=== PATIENT | female | born 1930 | race Caucasian/White ===

== ENCOUNTER 2021-09-27 15:14 | Inpatient (IN) | payer OTHER ==
[~2021-09-27] VITALS: Ht 154.9 cm; Wt 45.5 kg
[~2021-09-27 15:14] MED LIST: ASPI81CH PO; ATOR10 PO; Prednisone20 MG PO
[2021-09-27 15:52] LABS: BASOPHILS ABSOLUTE AUTO 0.05 K/mm3 (0.00-0.23); BASOPHILS PERCENT AUTO 0 % (0-2); EOSINOPHILS PERCENT AUTO 0 % (0-6); Hematocrit 50.9 % (33.0-51.0); Hemoglobin 17.9 g/dL (11.5-16.0); IMMATURE GRAN PERCENT AUTO 1 % (0-1); LYMPHOCYTES ABSOLUTE AUTO 0.58 K/mm3 (0.84-5.20); LYMPHOCYTES PERCENT AUTO 3 % (21-46); MONOCYTES ABSOLUTE AUTO 0.38 K/mm3 (0.16-1.47); MONOCYTES PERCENT AUTO 2 % (4-13); Mean Corpuscular HGB 31.2 pg (26.0-34.0); Mean Corpuscular HGB Conc 35.2 g/dL (31.5-36.5); Mean Corpuscular Volume 89 fL (80-100); Mean Platelet Volume 10.4 fL (9.1-12.4); NEUTROPHILS ABSOLUTE AUTO 19.45 K/mm3 (1.96-9.15); NEUTROPHILS PERCENT AUTO 95 % (41-73); Platelet Count 352 K/mm3 (150-400); RDW Coefficient Variation 12.8 % (11.7-14.2); RDW Standard Deviation 41.8 fL (35.1-46.3); Red Blood Cell Count 5.74 M/mm3 (3.80-5.20); White Blood Cell Count 20.56 K/mm3 (4.00-11.30)
[2021-09-27 16:12] LABS: Albumin, Blood 4.3 g/dL (3.4-5.0); Bilirubin, Total 1.1 mg/dL (0.1-1.0); Calcium, Blood 10.1 mg/dL (8.5-10.1); Globulin, Blood 4.4 g/dL (2.2-4.0); Potassium, Blood 3.9 mmol/L (3.5-5.5); Total Protein, Blood 8.7 g/dL (6.4-8.2)
[2021-09-27 17:44] LABS: Source, Urine Clean Catch
[2021-09-27 18:01] LABS: Appearance, Urine Hazy (Clear); Bilirubin, Urine Neg (Neg); Blood, Urine 5+ (Neg); Color, Urine Yellow (P-Yellow); Glucose Qualitative, Urine Neg (Neg); Ketones, Urine 3+ (Neg); Leukocyte Esterase, Urine 2+ (Neg); Nitrite, Urine Pos (Neg); Protein, Urine 2+ (Neg); Specific Gravity, Urine 1.025 (1.003-1.022); Urobilinogen, Urine NORM (Normal)
[2021-09-27 18:25] LABS: Bacteria Many /hpf; Squamous Epithelial Cells Few /hpf (Few)
--- NOTE | 2021-09-27 21:39 | NUR ---
ADMIT NOTE 89 YR OLD FEMALE ADMITTED TO FLOOR FROM THE ED WITH DX OF SEPSIS DUE TO UTI. ED RN REPORTED PT'S NEIGHBOR WAS CONCERNED SHE WAS DISPLAYING WEAKNESS AND INCREASED CONFUSION SO SHE CALLED THE AMBULANCE TO BE TAKEN TP MINE. PT IS POORHISTORIAN, UNKNOWN OF MEDS. TEMP LOW (96.5 F) WARM BLANKETS APPLIED. IVF INFUSING. VOICED DRY MOUTH, BUT VOICED HAD TROUBLE SWALLOWING). SIPS OF WATER TOLERATAD. ORIENTD TO CALL LIGHT. BED ALARM ON. CALL LIGHT IN REACH
--- NOTE | 2021-09-28 00:33 | NUR ---
SKIN WARM TO TOUCH. IVF INFUSING. AFFECT MORE CHEERFUL. CALL LIGHT IN REACH. REPOSITIONED
--- NOTE | 2021-09-28 03:43 | NUR ---
CYLINDER DEVALVER SUMMARY WAS ADMITTED EARLIER IN THE SHIFT WITH CONFUSION AND SKIN COOL TO TOUCH. WARM BLANKETS APPLIED, AND HEAT TURNED UP IN ROOM. SKIN/PT WARM TO TOUCH NOW. IVF OF LR INFUSING AT 100 ML/HR. TOLERATED PO WATER IN SIPS. VERBALIZATION MORE COHERENT THAN NOTED EARLIER. RESTING QUIETLY WITH NO NOTED ACUTE DISTRESS. FEW INTERRUPTIONS IN REST NOTED, CALL LIGHT IN REACH. WILL CONT TO MONITOR. BED ALARM ON
[2021-09-28 05:43] LABS: BASOPHILS ABSOLUTE AUTO 0.06 K/mm3 (0.00-0.23); BASOPHILS PERCENT AUTO 0 % (0-2); EOSINOPHILS ABSOLUTE AUTO 0.05 K/mm3 (0.00-0.68); EOSINOPHILS PERCENT AUTO 0 % (0-6); Hematocrit 42.7 % (33.0-51.0); Hemoglobin 14.9 g/dL (11.5-16.0); IMMATURE GRAN ABSOLUTE AUTO 0.09 K/mm3 (0.00-0.10); IMMATURE GRAN PERCENT AUTO 1 % (0-1); LYMPHOCYTES ABSOLUTE AUTO 1.31 K/mm3 (0.84-5.20); LYMPHOCYTES PERCENT AUTO 7 % (21-46); MONOCYTES ABSOLUTE AUTO 1.33 K/mm3 (0.16-1.47); MONOCYTES PERCENT AUTO 8 % (4-13); Mean Corpuscular HGB 31.4 pg (26.0-34.0); Mean Corpuscular HGB Conc 34.9 g/dL (31.5-36.5); Mean Corpuscular Volume 90 fL (80-100); Mean Platelet Volume 10.3 fL (9.1-12.4); NEUTROPHILS ABSOLUTE AUTO 14.99 K/mm3 (1.96-9.15); NEUTROPHILS PERCENT AUTO 84 % (41-73); Platelet Count 258 K/mm3 (150-400); RDW Coefficient Variation 12.7 % (11.7-14.2); Red Blood Cell Count 4.74 M/mm3 (3.80-5.20); White Blood Cell Count 17.83 K/mm3 (4.00-11.30)
[2021-09-28 06:11] LABS: Bun/Creatinine Ratio 68.9 (12.0-20.0); Calcium, Blood 8.9 mg/dL (8.5-10.1); Creatinine, Blood 0.76 mg/dL (0.40-1.00); Potassium, Blood 3.7 mmol/L (3.5-5.5)
--- NOTE | 2021-09-28 17:34 | NUR ---
Brief supportive visit. Pt resting in bed and is pleasantly confused. Pt A&OX1. Pt struggles with remembering family member names and can recall name of one of her children. Pt tends to engage in non sensical conversation and is distracted easily. Ended visit to allow Pt to rest.
--- NOTE | 2021-09-28 18:56 | NUR ---
SHIFT SUMMARY PT IS FEELING BETTER TODAY, FEWER INSTANCES OF DIARRHEA SINCE USING HER BANANTROL. IC INFILTRATED AND PT SWITCHED TO PO MEDS. WORKED WITH PT AND OT TODAY. PT WILL BE EVALUATED TO DECIDE WHTHER SHE WILL RETURN TO HER ASISTED LIVING. BED IN LOWEST POSITION AND CALL LIGHT IN REACH
[2021-09-29 04:40] LABS: BASOPHILS ABSOLUTE AUTO 0.05 K/mm3 (0.00-0.23); BASOPHILS PERCENT AUTO 0 % (0-2); EOSINOPHILS ABSOLUTE AUTO 0.09 K/mm3 (0.00-0.68); EOSINOPHILS PERCENT AUTO 1 % (0-6); Hematocrit 42.9 % (33.0-51.0); Hemoglobin 14.5 g/dL (11.5-16.0); IMMATURE GRAN ABSOLUTE AUTO 0.04 K/mm3 (0.00-0.10); IMMATURE GRAN PERCENT AUTO 0 % (0-1); LYMPHOCYTES PERCENT AUTO 16 % (21-46); MONOCYTES ABSOLUTE AUTO 0.86 K/mm3 (0.16-1.47); MONOCYTES PERCENT AUTO 8 % (4-13); Mean Corpuscular HGB 30.7 pg (26.0-34.0); Mean Corpuscular HGB Conc 33.8 g/dL (31.5-36.5); Mean Corpuscular Volume 91 fL (80-100); Mean Platelet Volume 10.3 fL (9.1-12.4); NEUTROPHILS ABSOLUTE AUTO 8.38 K/mm3 (1.96-9.15); NEUTROPHILS PERCENT AUTO 75 % (41-73); Platelet Count 241 K/mm3 (150-400); RDW Standard Deviation 43.2 fL (35.1-46.3); Red Blood Cell Count 4.72 M/mm3 (3.80-5.20); White Blood Cell Count 11.22 K/mm3 (4.00-11.30)
[2021-09-29 04:56] LABS: Calcium, Blood 8.8 mg/dL (8.5-10.1); Creatinine, Blood 0.63 mg/dL (0.40-1.00); Potassium, Blood 3.2 mmol/L (3.5-5.5)
--- NOTE | 2021-09-29 06:21 | NUR ---
PATENTS EXAMINER SUMMARY HAS BEEN AWAKE AT INTERVALS THIS SHIFT. CONFUSION INCREASED, EVEN GETTING OUT OF BED PULLING AT IV LINE AND ALMOST FALLING. NOT REDIRECTABLE, PLACED IN NISSA VEST AND 4 RAILS UP FOR SAFETY. CONTINUES TO VOICE FRUSTRATIONS OF NOT KNOWING WHERE SHE IS AND EVEN THOUGH STAFF CONTINUES TO REDIRECT HER, SHE VOICES FEARS OF NOT KNOWING WHERE SHE IS AND OF WHY SHE IS IN NISSA VEST. FINALLY WENT TO SLEEP. CALL LIGHT IN REACH. REASURRANCE AND SUPPORT VOICED. WILL CONTINUE TO MONITOR.
[2021-09-29 07:58] LABS: Magnesium, Blood 2.4 mg/dL (1.6-2.4); Phosphorus, Blood 2.3 mg/dL (2.5-4.9)
--- NOTE | 2021-09-29 18:00 | NUR ---
SHIFT SUMMARY PATIENT A&0X1 AND FORGETFUL. PATIENT MOVED FROM MAIN FLOOR TO BACK MERRILL FOR CLOSER OBSERVATION. REPORTED THAT PATIENT IS INDEPENDENT IN ROOM. PATIENT HAS BEEN UP IN CHAIR SINCE ARRIVAL. RECEIVING IV FLUIDS AND REPORTED SHE RECEIVED IV K+. NO SIGNIFICANT EVENTS. WILL CONTINUE TO MONITOR.
--- NOTE | 2021-09-29 18:47 | NUR ---
TRANFER NOTE. PT WAS PLACED INTO A NISSA VEST LAST NIGHT AND WAS VERY UPSET BY IT. TODAY SHE HAS BEEN VERY AGITATED ANC SCARED THAT SHE WOULD BE PUT BACK INTO RESTRAINTS. SHE WAS IN THE CHAIR ON A CHAIR ALARM AND CONSTANTLY KEPT GETTING UP AND DOWN AND WAS SO UPSET BY THE ALARM THAT SHE WAS PANICKING AND PULLED OUT OUT HER IV. THE IV WAS REPLACED AND A SINGLE DOSE OF ATIVAN GIVEN. SHE SPENT THE REST OF THE DAY GETTING UP AND DOWN AND YELLING OUT ABOUT BEING LONELY AND SCARED AND NOT KNOWING WHERE SHE WAS. PT RECIEVED CONSTANT REASSURANCE AND REDIRECTION, BUT HAS A VERY POOR MEMORY. SHE WAS TRANSFERRED TO THE BACK MERRILL TO BE PLACED ON CAMERA TO GIVE HER MORE FREEDOM. REPORT GIVEN TO NAVARRO GARAY
--- NOTE | 2021-09-30 00:54 | NUR ---
PATIENT HAVING AUDITORY HALLUCINATIONS LAST THIRTY MINUTES.
--- NOTE | 2021-09-30 04:28 | NUR ---
SHIFT SUMMARY PATIENT ANXIOUS AND FORGETFUL T/O THE SHIFT. AXO X2 WITH CONFUSION AND SUNDOWNING. REPEATING QUESTIONS ALREADY ANSWERED REPORTING SHE DOESN'T UNDERSTAND WHY SHE IS HERE. UNABLE TO REORIENT AND REDIRECT AT THIS TIME. PATIENT HAD MULTIPLE OOB ATTEMPTS. TRAZODONE 50 MG GIVEN FOR INSOMNIA WITH MINIMAL EFFECT. PIV REMAINS INTACT. 1/2 NS FINISHED INFUSING AT 125mL/HR X ONE BAG. AUDITORY HALLUCINATIONS. MELATONIN 3 MG GIVEN FOR INSOMNIA. PATIENT ABLE TO SLEEP PART OF SECOND HALF OF SHIFT. VSS/AFEBRILE. DENIES PAIN, SOB, AND N/V. CALL LIGHT IN REACH. BED IN LOWEST POSITION AND ALARM ACTIVATED. WILL CONTINUE TO MONITOR UNTIL DAY SHIFT NURSE ASSUMES CARE.
[2021-09-30 06:27] LABS: Calcium, Blood 8.3 mg/dL (8.5-10.1); Creatinine, Blood 0.55 mg/dL (0.40-1.00); Potassium, Blood 3.8 mmol/L (3.5-5.5)
--- NOTE | 2021-09-30 11:30 | NUR ---
ORDER FOR 1/2 NACL AT 250ML/HR X1 BAG PLACED BY DR. HETAL YAO NOT DR. WILLEM HOLM.
--- NOTE | 2021-09-30 12:49 | NUR ---
ATTEMPTED TO CALL DAUGHTER AND MULTIPLE TIMES IN REGARDS TO DISCHARGE. NO ANSWER.
[2021-09-30] MEDS ORDERED: MELA3 PO (13:01)
[2021-09-30] MEDS ORDERED: VISBIOME 112.51 EACH PO (13:02)
--- NOTE | 2021-09-30 17:39 | NUR ---
SHIFT SUMMARY PATIENT A&O TO SELF. VERY FORGETFUL AND CONFUSED. CONTINUALLY ASKING SAME QUESTIONS. SBA TO BATHROOM. RECEIVED IV FLUIDS AND ANTIBIOTICS. PLAN TO DISCHARGE HOME ON SATURDAY WHEN HER KIDS WILL BE ABLE TO HELP WITH HER CARE AND BEGIN THE PROCESS OF GETTING HER AND HER INTO ASSISTED LIVING. WILL CONTINUE TO MONITOR.
--- NOTE | 2021-10-01 03:32 | NUR ---
URINE SAMPLE FOR OSMOLALITY COLLECTED AND SENT TO LAB
--- NOTE | 2021-10-01 04:17 | NUR ---
SHIFT SUMMARY PATIENT TEMP 100.9 AND TYLENOL 650 MG GIVEN PER EMAR. REASSESS 98.5. AXO X 2 FORGETFUL AND CONFUSED. REPEATS SHE DOESN'T KNOW WHAT IS GOING ON AND WHY SHE IS HERE. NO AUDITORY HALLUCINATIONS OBSERVED. WATCHED TV SITTING IN CHAIR FIRST PART OF SHIFT. DENIES PAIN, SOB, AND N/V. PIV REMAINS INTACT. SLEPT ON/OFF T/O SHIFT. CALL LIGHT IN REACH. BED IN LOWEST POSITION AND ALARM ACTIVATED. WILL CONTINUE TO MONITOR UNTIL DAY SHIFT NURSE ASSUMES CARE.
[2021-10-01 05:20] LABS: Bun/Creatinine Ratio 19.2 (12.0-20.0); Calcium, Blood 7.9 mg/dL (8.5-10.1); Creatinine, Blood 0.52 mg/dL (0.40-1.00); Potassium, Blood 3.5 mmol/L (3.5-5.5)
[2021-10-01 08:39] LABS: BASOPHILS ABSOLUTE AUTO 0.06 K/mm3 (0.00-0.23); BASOPHILS PERCENT AUTO 1 % (0-2); EOSINOPHILS ABSOLUTE AUTO 0.06 K/mm3 (0.00-0.68); EOSINOPHILS PERCENT AUTO 1 % (0-6); Hematocrit 41.8 % (33.0-51.0); Hemoglobin 14.3 g/dL (11.5-16.0); IMMATURE GRAN ABSOLUTE AUTO 0.06 K/mm3 (0.00-0.10); IMMATURE GRAN PERCENT AUTO 1 % (0-1); LYMPHOCYTES PERCENT AUTO 11 % (21-46); MONOCYTES PERCENT AUTO 6 % (4-13); Mean Corpuscular HGB 31.2 pg (26.0-34.0); Mean Corpuscular HGB Conc 34.2 g/dL (31.5-36.5); Mean Corpuscular Volume 91 fL (80-100); Mean Platelet Volume 10.7 fL (9.1-12.4); NEUTROPHILS ABSOLUTE AUTO 10.14 K/mm3 (1.96-9.15); NEUTROPHILS PERCENT AUTO 82 % (41-73); Platelet Count 175 K/mm3 (150-400); RDW Coefficient Variation 12.9 % (11.7-14.2); RDW Standard Deviation 43.1 fL (35.1-46.3); Red Blood Cell Count 4.58 M/mm3 (3.80-5.20); White Blood Cell Count 12.32 K/mm3 (4.00-11.30)
--- NOTE | 2021-10-01 17:46 | NUR ---
SHIFT SUMMARY PATIENT A&OX1, CONFUSED AND FORGETFUL. NEEDS CONTINUOUS REASSURANCE AND DIRECTION. SPENT MOST OF SHIFT UP IN CHAIR. 1PA TO BATHROOM. C/O ABDOMINAL PAIN THIS AFTERNOON, MEDICATED PER APR. LOW GRADE FEVER NOTED THIS AFTERNOON. ENCOURAGING FLUID AND FOOD INTAKE. WILL CONTINUE TO MONITOR.
--- NOTE | 2021-10-02 04:14 | NUR ---
SHIFT SUMMARY PATIENT AXOX 2 WITH CONFUSION AND FORGETFUL. REPORTS SHE DOES NOT KNOW WHAT IS GOING ON. PIV REMAINS INTACT. VSS/AFEBRILE. LOW GRADE TEMP RESOLVED ON OWN. ON ROOM AIR. DENIES PAIN, SOB, AND N/V. TWO ASSIST TO BR. UP IN CHAIR FIRST PART OF SHIFT. SPOUSE CALLED AND TALKED TO HIM FOR FORTY MINUTES. ONE OOB ATTEMPT. CALL LIGHT IN REACH. BED IN LOWEST POSITION AND ALARM ACTIVATED. WILL CONTINUE TO MONITOR UNTIL DAY SHIFT NURSE ASSUMES CARE.
[2021-10-02 05:05] LABS: BASOPHILS ABSOLUTE AUTO 0.06 K/mm3 (0.00-0.23); BASOPHILS PERCENT AUTO 1 % (0-2); EOSINOPHILS ABSOLUTE AUTO 0.04 K/mm3 (0.00-0.68); EOSINOPHILS PERCENT AUTO 0 % (0-6); Hematocrit 36.6 % (33.0-51.0); Hemoglobin 12.7 g/dL (11.5-16.0); IMMATURE GRAN ABSOLUTE AUTO 0.06 K/mm3 (0.00-0.10); IMMATURE GRAN PERCENT AUTO 1 % (0-1); LYMPHOCYTES ABSOLUTE AUTO 1.13 K/mm3 (0.84-5.20); LYMPHOCYTES PERCENT AUTO 10 % (21-46); MONOCYTES ABSOLUTE AUTO 1.05 K/mm3 (0.16-1.47); MONOCYTES PERCENT AUTO 9 % (4-13); Mean Corpuscular HGB 30.8 pg (26.0-34.0); Mean Corpuscular HGB Conc 34.7 g/dL (31.5-36.5); Mean Corpuscular Volume 89 fL (80-100); Mean Platelet Volume 11.4 fL (9.1-12.4); NEUTROPHILS ABSOLUTE AUTO 8.85 K/mm3 (1.96-9.15); NEUTROPHILS PERCENT AUTO 79 % (41-73); Platelet Count 130 K/mm3 (150-400); RDW Coefficient Variation 12.7 % (11.7-14.2); RDW Standard Deviation 41.6 fL (35.1-46.3); Red Blood Cell Count 4.12 M/mm3 (3.80-5.20); White Blood Cell Count 11.19 K/mm3 (4.00-11.30)
[2021-10-02 05:31] LABS: Bun/Creatinine Ratio 18.8 (12.0-20.0); Calcium, Blood 7.4 mg/dL (8.5-10.1); Creatinine, Blood 0.48 mg/dL (0.40-1.00); Potassium, Blood 3.3 mmol/L (3.5-5.5)
[2021-10-02] MEDS ORDERED: CEFD300 PO (12:01)
[2021-10-02] MEDS ORDERED: 1/2 NS 250ml250 ML (12:01)
--- NOTE | 2021-10-02 12:20 | NUR ---
PT DISCHARGE AT 1215. PT HAS BEEN AOX2 AND TRANSFERING WELL A STANDBY. ALL PAPERWORK REVIEWED WITH PT AND HER NEIGHBOR. NO DISTRESS NOTED TO DAY AND PT APPEARS VERY READY TO GO HOME. ALL PERSONAL BELONGINGS WITH PT AND PT ESCORTED OUT VIA WHEELCHAIR.
== END 2021-10-02 12:40 | disposition home health service (06) | DRG 871 ==
LOC: ER 15:14 → MEDS 19:13
PROVIDERS: Family Medicine; Physician Assistant; ADMIT Family Medicine
DX: A41.59 Other Gram-negative sepsis (principal); G92.8 Other toxic encephalopathy; N39.0 Urinary tract infection, site not specified; N17.9 Acute kidney failure, unspecified; E87.0 Hyperosmolality and hypernatremia; F05 Delirium due to known physiological condition; E87.6 Hypokalemia; R65.20 Severe sepsis without septic shock; E78.00 Pure hypercholesterolemia, unspecified; G30.9 Alzheimer's disease, unspecified; F02.80 Dementia in other diseases classified elsewhere, unspecified severity, without behavioral disturbance, psychotic disturbance, mood disturbance, and anxiety; R73.9 Hyperglycemia, unspecified; Z78.1 Physical restraint status; Z88.1 Allergy status to other antibiotic agents; Z79.82 Long term (current) use of aspirin; Z98.49 Cataract extraction status, unspecified eye; Z79.899 Other long term (current) drug therapy; Z51.5 Encounter for palliative care
CPT/HCPCS: 36415; 71045; 80048; 80053; 81001; 83605; 83735; 83935; 84100; 85025; 87040; 87077; 87086; 87186; 92526; 92610; 93005; 93010; 96374; 97116; 97162; 97530; 99285-25; A9270; J0696; J1650; J3480; J7030; J7050; J7120

== ENCOUNTER → 2022-05-25 | Outpatient (CLI) | payer OTHER ==
[~2022-05-25] MED LIST changes: +1/2 NS 250ml250 ML; +CEFD300 PO; +MELA3 PO; +VISBIOME 112.51 EACH PO
== END | disposition home or self-care (01) ==
LOC: LAB SHORT 09:40 → LAB 09:40
DX: R30.0 Dysuria (principal)
CPT/HCPCS: 87077; 87086; 87186